=== PATIENT | male | born 1955 | race Caucasian/White ===

== ENCOUNTER → 2017-07-09 | Outpatient (CLI) | payer OTHER | END | disposition home or self-care (01) | LOC: RAD 07:37 | PROVIDERS: ATTEND Surgery | DX: Z01.818 Encounter for other preprocedural examination (principal); K57.10 Diverticulosis of small intestine without perforation or abscess without bleeding; M53.86 Other specified dorsopathies, lumbar region | CPT/HCPCS: 74241 ==

== ENCOUNTER 2018-09-02 11:39 | Day surgery (SDC) | payer OTHER ==
[2018-08-31 08:51] VITALS: BP 115/63
[2018-08-31 09:10] LABS: BASOPHILS # (AUTO) 0.02 x10^3/uL (0-0.1); BASOPHILS % (AUTO) 0 % (0-1); EOSINOPHILS % (AUTO) 4 % (1-7); LYMPHOCYTES # (AUTO) 1.61 x10^3/uL (1-3.4); LYMPHOCYTES % (AUTO) 32 % (22-44); MD NO; MEAN CORPUSCULAR HEMOGLOBIN 32.7 pg (27.5-34.5); MEAN CORPUSCULAR HGB CONC 34.2 g/dL (33.2-36.2); MEAN CORPUSCULAR VOLUME 95.5 fL (81-97); MEAN PLATELET VOLUME 7.9 fL (7.4-10.4); MONOCYTES # (AUTO) 0.48 x10^3/uL (0.2-0.8); MONOCYTES % (AUTO) 10 % (2-9); NEUTROPHILS # (AUTO) 2.77 x10^3/uL (1.8-6.8); NEUTROPHILS % (AUTO) 55 % (42-75); PLATELET COUNT 135 x10^3/uL (130-400); RED BLOOD COUNT 4.86 x10^6/uL (4.38-5.82); RED CELL DISTRIBUTION WIDTH 13.6 % (9.4-14.8)
[2018-08-31 09:16] LABS: ANION GAP 8 mmol/L (5-15); CALCIUM 9.2 mg/dL (8.5-10.1); CHLORIDE 101 mmol/L (98-107); CREATININE 0.95 mg/dL (0.7-1.3)
[~2018-09-02] VITALS: Ht 180.3 cm; Wt 136.4 kg
[~2018-09-02 11:39] MED LIST: ENAL1TAB5 PO; LORA0.5T PO; METF500T9 PO; SIMV20TA3 PO
[2018-09-02] MEDS ORDERED: UBID100C41 PO (12:14)
[2018-09-02] MEDS ORDERED: mega red PO (12:14)
[2018-09-02] MEDS ORDERED: CHOL500045 PO (12:14)
[2018-09-02] MEDS ORDERED: MULT-6 PO (12:14)
[2018-09-02] MEDS ORDERED: NITROGLYCERIN 5 MG/ML, 10ML ONE (14:25)
[2018-09-02] MEDS ORDERED: MIDAZOLAM 1 MG/ML, 5ML ONE (14:32)
[2018-09-02] MEDS ORDERED: TICAGRELOR 90 MG TABLET ONE (14:32)
[2018-09-02] MEDS ORDERED: BIVALIRUDIN 250 MG ONE (14:32)
[2018-09-02] MEDS ORDERED: HEPARIN 1,000 UNITS/ML, 10ML ONE (14:32)
[2018-09-02] MEDS ORDERED: VERAPAMIL 2.5 MG/ML, 2ML ONE (14:32)
[2018-09-02] MEDS ORDERED: FENTANYL PF 100 MCG/2ML ONE (14:32)
[2018-09-02] MEDS ORDERED: SODIUM CHLORIDE 0.9% 1,000 ML IV SCH (15:13)
== END 2018-09-02 17:06 | disposition home or self-care (01) ==
LOC: CACL 11:39
PROVIDERS: ATTEND Internal Medicine Cardiovascular Disease
DX: I25.10 Atherosclerotic heart disease of native coronary artery without angina pectoris (principal); E78.2 Mixed hyperlipidemia; I10 Essential (primary) hypertension; E11.9 Type 2 diabetes mellitus without complications; E66.9 Obesity, unspecified; Z88.5 Allergy status to narcotic agent; Z98.890 Other specified postprocedural states; Z88.8 Allergy status to other drugs, medicaments and biological substances; Z87.01 Personal history of pneumonia (recurrent); Z72.89 Other problems related to lifestyle; Z87.891 Personal history of nicotine dependence
CPT/HCPCS: 36415; 80048; 85025; 93456; 99156; C1769; C1894; J1644; J2250; J3010; Q9967; J0583

== ENCOUNTER 2018-09-30 04:09 | Inpatient (IN) | payer OTHER ==
[2018-09-29 13:11] LABS: INTERNATIONAL NORMALIZED RATIO 1.06 (0.93-1.1); PROTHROMBIN TIME 11.2 Seconds (9.6-11.5)
[2018-09-29 13:12] LABS: ALANINE AMINOTRANSFERASE 54 U/L (12-78); ALBUMIN 4.3 g/dL (3.4-5.0); ANION GAP 7 mmol/L (5-15); BASOPHILS # (AUTO) 0.03 x10^3/uL (0-0.1); BASOPHILS % (AUTO) 1 % (0-1); CALCIUM 9.6 mg/dL (8.5-10.1); CHLORIDE 101 mmol/L (98-107); CREATININE 0.94 mg/dL (0.7-1.3); EOSINOPHILS # (AUTO) 0.38 x10^3/uL (0-0.4); EOSINOPHILS % (AUTO) 7 % (1-7); LYMPHOCYTES # (AUTO) 1.47 x10^3/uL (1-3.4); LYMPHOCYTES % (AUTO) 27 % (22-44); MD NO; MEAN CORPUSCULAR HEMOGLOBIN 33.2 pg (27.5-34.5); MEAN CORPUSCULAR HGB CONC 34.8 g/dL (33.2-36.2); MEAN CORPUSCULAR VOLUME 95.5 fL (81-97); MEAN PLATELET VOLUME 7.8 fL (7.4-10.4); MONOCYTES # (AUTO) 0.62 x10^3/uL (0.2-0.8); MONOCYTES % (AUTO) 12 % (2-9); NEUTROPHILS # (AUTO) 2.87 x10^3/uL (1.8-6.8); NEUTROPHILS % (AUTO) 53 % (42-75); PLATELET COUNT 132 x10^3/uL (130-400); RED BLOOD COUNT 4.85 x10^6/uL (4.38-5.82); RED CELL DISTRIBUTION WIDTH 13.2 % (9.4-14.8)
[2018-09-29 13:14] LABS: ALKALINE PHOSPHATASE 45 U/L (45-117); BILIRUBIN,TOTAL 0.7 mg/dL (0.2-1.0); TOTAL PROTEIN 8.1 g/dL (6.4-8.2)
[2018-09-29 13:27] LABS: MICROSCOPIC NOT IND
[~2018-09-30] VITALS: Ht 180.3 cm; Wt 142.0 kg
[~2018-09-30 04:09] MED LIST changes: +BUPR100T11 PO; +CHOL500045 PO; +MULT-6 PO; +NALT50TA PO; +UBID100C41 PO; +mega red PO
[2018-09-30 04:28] VITALS: BP_SYST 112; BP_SYST 117; BP_DIAS 71; BP_DIAS 72
[2018-09-30] MEDS ORDERED: CHLORHEXIDINE 15 ML UDC MM SCH (04:30)
[2018-09-30] MEDS ORDERED: DO NOT GIVE MC SCH (04:30)
[2018-09-30] MEDS ORDERED: INSULIN LISPRO 100 UNITS/ML, PEN SQ-INSULIN SCH (04:30)
[2018-09-30] MEDS ORDERED: ALBUMIN HUMAN 5% 500 ML IV PRN (04:30)
[2018-09-30] MEDS ORDERED: VANCOMYCIN 2,100 MG in SODIUM CHLORIDE 0.9% 500 ML IV PRN (07:30)
[2018-09-30] MEDS ORDERED: MANNITOL PMX 20% 500 ML IVPB PRN (07:30)
[2018-09-30] MEDS ORDERED: POTASSIUM CHLORIDE 80 MEQ, SODIUM BICARBONATE 8.4% 10 MEQ, MAGNESIUM SULFATE 0.5 GM, LI... IV PRN (07:30)
[2018-09-30] MEDS ORDERED: DEXMEDETOMIDINE 200 MCG in SODIUM CHLORIDE 0.9% 48 ML IV SCH (07:30)
[2018-09-30] MEDS ORDERED: EPINEPHRINE 2 MG in SODIUM CHLORIDE 0.9% 248 ML IV SCH (07:30)
[2018-09-30] MEDS ORDERED: PHENYLEPHRINE 10 MG in SODIUM CHLORIDE 0.9% 249 ML IV PRN ×2 (07:30→12:19)
[2018-09-30] MEDS ORDERED: REGULAR INSULIN 62.5 UNITS in SODIUM CHLORIDE 0.9% 249.375 ML IV PRN (07:30)
[2018-09-30] MEDS ORDERED: CEFUROXIME 1.5 GM in SODIUM CHLORIDE 0.9% 50 ML IVPB PRN (07:30)
[2018-09-30] MEDS ORDERED: MIDAZOLAM 10MG/2 ML ONE (07:36)
[2018-09-30] MEDS ORDERED: FENTANYL PF 250 MCG/5ML ONE ×6 (07:36→12:40)
[2018-09-30] MEDS ORDERED: SODIUM CHLORIDE FLUSH 10ML SYR IVF SCH (09:00)
[2018-09-30] MEDS ORDERED: MUPIROCIN OINT 2%, 22GM TP SCH (09:00)
[2018-09-30] MEDS ORDERED: MAGNESIUM SULFATE PMX 4GM/100M 0 ML ONE (11:19)
[2018-09-30] MEDS ORDERED: LIDOCAINE 2% 100MG/5ML SYRINGE ONE ×2 (11:19→12:01)
[2018-09-30] MEDS ORDERED: AMIODARONE 50 MG/ML, 3ML ONE (11:43)
[2018-09-30] MEDS ORDERED: AMINOCAPROIC ACID 250 MG/ML, 20ML ONE ×2 (11:45)
[2018-09-30] MEDS ORDERED: PROPOFOL 10 MG/ML, 20ML ONE (11:45)
[2018-09-30] MEDS ORDERED: ROCURONIUM 10MG/ML,5ML ONE ×2 (11:45)
[2018-09-30] MEDS ORDERED: methylPREDNISolone SOD SUCC 125 MG/2 ML ONE (12:01)
[2018-09-30] MEDS ORDERED: SODIUM BICARBONATE 1 MEQ/ML, 50ML VIAL ONE (12:01)
[2018-09-30] MEDS ORDERED: HEPARIN 1,000 UNITS/ML, 30ML ONE (12:02)
[2018-09-30] MEDS ORDERED: ALBUMIN HUMAN 25% 50 ML ONE (12:02)
[2018-09-30] MEDS ORDERED: NITROGLYCERIN/D5W PMX 250 ML IV PRN (12:19)
[2018-09-30] MEDS ORDERED: SODIUM CHLORIDE 0.9% 1,000 ML IV PRN (12:19)
[2018-09-30] MEDS ORDERED: VASOPRESSIN 50 UNIT in SODIUM CHLORIDE 0.9% 247.5 ML IV PRN (12:19)
[2018-09-30] MEDS ORDERED: DOBUTAMINE 250 MG in SODIUM CHLORIDE 0.9% 230 ML IV PRN (12:19)
[2018-09-30] MEDS ORDERED: GLUCAGON 1 MG IM PRN (12:30)
[2018-09-30] MEDS ORDERED: CHLORHEXIDINE 15 ML UDC PO SCH (12:30)
[2018-09-30] MEDS ORDERED: INSULIN REGULAR 100 UNITS/ML, 3ML VIAL IVPush PRN (12:30)
[2018-09-30] MEDS ORDERED: DEXTROSE 4 GM TAB.CHEW PO PRN (12:30)
[2018-09-30] MEDS ORDERED: ACETAMINOPHEN 650 MG SUPP PR PRN (12:30)
[2018-09-30] MEDS ORDERED: PROCHLORPERAZINE 5 MG/ML, 2ML IVPush PRN (12:30)
[2018-09-30] MEDS ORDERED: MIDAZOLAM 1 MG/ML, 5ML IVPush PRN (12:30)
[2018-09-30] MEDS ORDERED: BISACODYL 10 MG SUPP PR PRN (12:30)
[2018-09-30] MEDS ORDERED: ONDANSETRON 2MG/ML, 2ML IVPush PRN (12:30)
[2018-09-30] MEDS ORDERED: BISACODYL 5 MG EC TABLET PO PRN (12:30)
[2018-09-30] MEDS ORDERED: DEXTROSE 50%, 50ML SYRINGE IVPush PRN (12:30)
[2018-09-30] MEDS ORDERED: ACETAMINOPHEN 325 MG TABLET PO PRN (12:30)
[2018-09-30] MEDS ORDERED: morphine SULFATE 10 MG/ML, 1ML IVPush PRN (12:30)
[2018-09-30] MEDS ORDERED: LACTATED RINGERS 1,000 ML IV PRN (12:30)
[2018-09-30] MEDS ORDERED: EPINEPHRINE 2 MG in SODIUM CHLORIDE 0.9% 248 ML IV PRN (13:00)
[2018-09-30] MEDS: DOCUSATE 100 MG CAPSULE PO SCH ×2 (13:08→20:52)
[2018-09-30 13:10] LABS: GLUCOSE BY BLOOD GAS ANALYZER 143 mg/dL (70-110); HEMOGLOBIN BY BLOOD GAS ANALYZ 13.1 g/dL (14.0-18.0); POTASSIUM BY BLOOD GAS ANALYZR 3.7 mmol/L (3.6-5.5)
[2018-09-30 13:20] LABS: INTERNATIONAL NORMALIZED RATIO 1.21 (0.93-1.1); PROTHROMBIN TIME 12.7 Seconds (9.6-11.5)
[2018-09-30] MEDS: MAGNESIUM SULFATE 1 GM in SODIUM CHLORIDE 0.9% 50 ML IVPB SCH (13:29)
[2018-09-30] MEDS: DEXMEDETOMIDINE 200 MCG in SODIUM CHLORIDE 0.9% 48 ML IV PRN ×3 (13:29→20:45)
[2018-09-30] MEDS: KSCALE TO 4.5 IV SCH ×2 (13:35→20:00)
[2018-09-30] MEDS: SODIUM BICARB 8.4%, 50ML SYRINGE IV PRN ×2 (13:37→15:10)
[2018-09-30] MEDS ORDERED: POTASSIUM CHLORIDE PMX 100 ML IV ONE (14:00)
[2018-09-30] MEDS: INSULIN LISPRO 100 UNITS/ML, PEN SQ-INSULIN SCH ×2 (15:49→20:52)
[2018-09-30] MEDS: REGULAR INSULIN 62.5 UNITS in SODIUM CHLORIDE 0.9% 249.375 ML IV PRN (16:44)
[2018-09-30] MEDS: FENTANYL PF 100 MCG/2ML IVPush PRN ×2 (16:55→20:18)
[2018-09-30] MEDS: SODIUM CHLORIDE FLUSH 10ML SYR IVF SCH (20:51)
[2018-09-30] MEDS: MUPIROCIN OINT 2%, 22GM NAS SCH (20:52)
[2018-09-30] MEDS ORDERED: VANCOMYCIN 2,100 MG in SODIUM CHLORIDE 0.9% 250 ML IVPB SCH (21:00)
[2018-09-30] MEDS: CEFUROXIME 1.5 GM in SODIUM CHLORIDE 0.9% 50 ML IVPB SCH (21:10)
[2018-09-30] MEDS: VANCOMYCIN 2,100 MG in SODIUM CHLORIDE 0.9% 500 ML IVPB SCH (21:48)
[2018-09-30] MEDS ORDERED: DEXMEDETOMIDINE 1,000 MCG in SODIUM CHLORIDE 0.9% 240 ML IV PRN (23:00)
[2018-10-01] MEDS: FENTANYL PF 100 MCG/2ML IVPush PRN ×3 (00:22→08:13)
[2018-10-01] MEDS: REGULAR INSULIN 62.5 UNITS in SODIUM CHLORIDE 0.9% 249.375 ML IV PRN (00:42)
[2018-10-01] MEDS: KSCALE TO 4.5 IV SCH ×2 (02:00→07:24)
[2018-10-01] MEDS: OXYcodone IR 5MG TABLET PO PRN ×6 (02:01→19:46)
[2018-10-01 06:24] LABS: MEAN CORPUSCULAR HEMOGLOBIN 33.5 pg (27.5-34.5); MEAN CORPUSCULAR HGB CONC 34.9 g/dL (33.2-36.2); MEAN CORPUSCULAR VOLUME 96.2 fL (81-97); RED BLOOD COUNT 3.76 x10^6/uL (4.38-5.82); RED CELL DISTRIBUTION WIDTH 13.5 % (9.4-14.8)
[2018-10-01 06:30] LABS: ANION GAP 7 mmol/L (5-15); CALCIUM 7.2 mg/dL (8.5-10.1); CHLORIDE 108 mmol/L (98-107); CREATININE 0.75 mg/dL (0.7-1.3)
[2018-10-01 06:31] LABS: INTERNATIONAL NORMALIZED RATIO 1.1 (0.93-1.1); PROTHROMBIN TIME 11.6 Seconds (9.6-11.5)
[2018-10-01 06:39] LABS: BASOPHILS # (AUTO) 0.02 x10^3/uL (0-0.1); BASOPHILS % (AUTO) 0 % (0-1); EOSINOPHILS % (AUTO) 0 % (1-7); LYMPHOCYTES # (AUTO) 0.73 x10^3/uL (1-3.4); LYMPHOCYTES % (AUTO) 9 % (22-44); MD SCAN; MEAN PLATELET VOLUME 7.5 fL (7.4-10.4); MONOCYTES # (AUTO) 0.83 x10^3/uL (0.2-0.8); MONOCYTES % (AUTO) 10 % (2-9); NEUTROPHILS # (AUTO) 6.97 x10^3/uL (1.8-6.8); NEUTROPHILS % (AUTO) 82 % (42-75); PLATELET COUNT 76 x10^3/uL (130-400)
[2018-10-01] MEDS: INSULIN LISPRO 100 UNITS/ML, PEN SQ-INSULIN SCH ×5 (07:00→20:54)
[2018-10-01] MEDS: CEFUROXIME 1.5 GM in SODIUM CHLORIDE 0.9% 50 ML IVPB SCH (08:13)
[2018-10-01] MEDS: MUPIROCIN OINT 2%, 22GM NAS SCH ×2 (08:14→20:50)
[2018-10-01] MEDS: SODIUM CHLORIDE FLUSH 10ML SYR IVF SCH ×2 (08:14→20:49)
[2018-10-01] MEDS: VANCOMYCIN 2,100 MG in SODIUM CHLORIDE 0.9% 500 ML IVPB SCH (08:14)
[2018-10-01] MEDS: ASPIRIN 81 MG TABLET EC PO SCH (08:16)
[2018-10-01] MEDS: DOCUSATE 100 MG CAPSULE PO SCH ×2 (08:16→20:50)
[2018-10-01] MEDS: WARFARIN BIOPROSTHETIC VALVE PROTOCOL 2-3 XX SCH (09:00)
[2018-10-01] MEDS ORDERED: KETOROLAC 30 MG/1 ML IM PRN (10:30)
[2018-10-01] MEDS: KETOROLAC 30 MG/1 ML IV PRN ×3 (10:52→22:38)
[2018-10-01] MEDS: MAGNESIUM SULFATE 1 GM in SODIUM CHLORIDE 0.9% 50 ML IVPB SCH (13:26)
[2018-10-01] MEDS ORDERED: WARFARIN 5 MG TABLET PO-COUM SCH (18:00)
[2018-10-02] MEDS: OXYcodone IR 5MG TABLET PO PRN ×4 (00:44→13:48)
[2018-10-02] MEDS: INSULIN LISPRO 100 UNITS/ML, PEN SQ-INSULIN SCH ×6 (00:49→21:00)
[2018-10-02] MEDS: KETOROLAC 30 MG/1 ML IV PRN ×2 (04:27→16:50)
[2018-10-02 04:47] LABS: MEAN CORPUSCULAR HEMOGLOBIN 33.1 pg (27.5-34.5); MEAN CORPUSCULAR HGB CONC 34.3 g/dL (33.2-36.2); MEAN CORPUSCULAR VOLUME 96.5 fL (81-97); MEAN PLATELET VOLUME 7.7 fL (7.4-10.4); PLATELET COUNT 76 x10^3/uL (130-400); RED BLOOD COUNT 3.58 x10^6/uL (4.38-5.82); RED CELL DISTRIBUTION WIDTH 13.4 % (9.4-14.8)
[2018-10-02 04:50] LABS: INTERNATIONAL NORMALIZED RATIO 1.11 (0.93-1.1); PROTHROMBIN TIME 11.7 Seconds (9.6-11.5)
[2018-10-02 04:53] LABS: ANION GAP 7 mmol/L (5-15); CALCIUM 7.4 mg/dL (8.5-10.1); CHLORIDE 102 mmol/L (98-107); CREATININE 0.75 mg/dL (0.7-1.3)
[2018-10-02 04:58] LABS: BASOPHILS # (AUTO) 0.03 x10^3/uL (0-0.1); BASOPHILS % (AUTO) 0 % (0-1); EOSINOPHILS # (AUTO) 0.03 x10^3/uL (0-0.4); EOSINOPHILS % (AUTO) 0 % (1-7); LYMPHOCYTES % (AUTO) 12 % (22-44); MD SCAN; MONOCYTES # (AUTO) 0.75 x10^3/uL (0.2-0.8); MONOCYTES % (AUTO) 8 % (2-9); NEUTROPHILS # (AUTO) 7.62 x10^3/uL (1.8-6.8); NEUTROPHILS % (AUTO) 80 % (42-75)
[2018-10-02] MEDS ORDERED: MAGNESIUM HYDROXIDE 8%, 30ML UDC PO PRN (08:00)
[2018-10-02] MEDS: BUPROPION 100 MG TABLET PO SCH ×2 (09:00→21:00)
[2018-10-02] MEDS: WARFARIN BIOPROSTHETIC VALVE PROTOCOL 2-3 XX SCH (09:00)
[2018-10-02] MEDS: metFORMIN XR 500 MG TAB.ER.24H PO SCH (09:18)
[2018-10-02] MEDS: MUPIROCIN OINT 2%, 22GM NAS SCH ×2 (09:19→21:30)
[2018-10-02] MEDS: DOCUSATE 100 MG CAPSULE PO SCH ×2 (09:26→21:00)
[2018-10-02] MEDS: ASPIRIN 81 MG TABLET EC PO SCH (09:26)
[2018-10-02] MEDS: FUROSEMIDE 20 MG/2 ML IV SCH ×2 (09:26→16:50)
[2018-10-02] MEDS: SODIUM CHLORIDE FLUSH 10ML SYR IVF SCH ×3 (09:27→21:32)
[2018-10-02] MEDS: MAGNESIUM SULFATE 1 GM in SODIUM CHLORIDE 0.9% 50 ML IVPB SCH (12:50)
[2018-10-02 14:00] VITALS: BP 149/83
[2018-10-02] MEDS ORDERED: WARFARIN 5 MG TABLET PO-COUM SCH (18:00)
[2018-10-02 19:12] VITALS: BP 135/64
[2018-10-02] MEDS ORDERED: LORazepam 0.5MG TABLET PO PRN (23:00)
[2018-10-03 00:36] VITALS: BP 130/78
[2018-10-03] MEDS ORDERED: AMIODARONE 150 MG in DEXTROSE 5% 100 ML IVPB ONE (00:40)
[2018-10-03] MEDS ORDERED: AMIODARONE 900 MG in DEXTROSE 5% 482 ML IV PRN (00:40)
[2018-10-03] MEDS ORDERED: FILTER 0.22 MICRON IV PRN (01:00)
[2018-10-03] MEDS: INSULIN LISPRO 100 UNITS/ML, PEN SQ-INSULIN SCH ×5 (02:37→21:00)
[2018-10-03] MEDS: OXYcodone IR 5MG TABLET PO PRN ×4 (03:18→19:14)
[2018-10-03 04:50] LABS: MEAN CORPUSCULAR HEMOGLOBIN 33.5 pg (27.5-34.5); MEAN CORPUSCULAR HGB CONC 34.7 g/dL (33.2-36.2); MEAN CORPUSCULAR VOLUME 96.4 fL (81-97); MEAN PLATELET VOLUME 7.8 fL (7.4-10.4); PLATELET COUNT 93 x10^3/uL (130-400); RED CELL DISTRIBUTION WIDTH 13.7 % (9.4-14.8)
[2018-10-03 04:51] LABS: ANION GAP 7 mmol/L (5-15); CALCIUM 7.1 mg/dL (8.5-10.1); CHLORIDE 105 mmol/L (98-107); CREATININE 0.53 mg/dL (0.7-1.3)
[2018-10-03 05:29] LABS: BASOPHILS # (AUTO) 0.02 x10^3/uL (0-0.1); BASOPHILS % (AUTO) 0 % (0-1); EOSINOPHILS # (AUTO) 0.15 x10^3/uL (0-0.4); EOSINOPHILS % (AUTO) 2 % (1-7); LYMPHOCYTES # (AUTO) 1.08 x10^3/uL (1-3.4); LYMPHOCYTES % (AUTO) 14 % (22-44); MD SCAN; MONOCYTES # (AUTO) 0.69 x10^3/uL (0.2-0.8); MONOCYTES % (AUTO) 9 % (2-9); NEUTROPHILS # (AUTO) 5.95 x10^3/uL (1.8-6.8); NEUTROPHILS % (AUTO) 75 % (42-75)
[2018-10-03 07:25] VITALS: BP 127/78
[2018-10-03] MEDS: BUPROPION 100 MG TABLET PO SCH ×2 (09:00→09:24)
[2018-10-03] MEDS: WARFARIN BIOPROSTHETIC VALVE PROTOCOL 2-3 XX SCH (09:00)
[2018-10-03] MEDS: DOCUSATE 100 MG CAPSULE PO SCH ×2 (09:15→21:00)
[2018-10-03] MEDS: metFORMIN XR 500 MG TAB.ER.24H PO SCH (09:24)
[2018-10-03] MEDS: ASPIRIN 81 MG TABLET EC PO SCH (09:24)
[2018-10-03] MEDS: MUPIROCIN OINT 2%, 22GM NAS SCH ×2 (09:25→22:04)
[2018-10-03] MEDS: SODIUM CHLORIDE FLUSH 10ML SYR IVF SCH ×4 (09:25→22:05)
[2018-10-03] MEDS: FUROSEMIDE 20 MG/2 ML IV SCH ×2 (09:25→18:24)
[2018-10-03 12:59] VITALS: BP 144/74
[2018-10-03 13:00] LABS: INTERNATIONAL NORMALIZED RATIO 1.15 (0.93-1.1); PROTHROMBIN TIME 12.1 Seconds (9.6-11.5)
[2018-10-03] MEDS ORDERED: WARFARIN 7.5 MG TABLET PO-COUM SCH (18:00)
[2018-10-03 19:22] VITALS: BP 125/77
[2018-10-03] MEDS: SIMVASTATIN 20 MG TABLET PO SCH (22:04)
[2018-10-04] MEDS: OXYcodone IR 5MG TABLET PO PRN ×4 (00:17→18:43)
[2018-10-04 02:11] VITALS: BP 145/78
[2018-10-04 06:05] LABS: INTERNATIONAL NORMALIZED RATIO 1.17 (0.93-1.1); PROTHROMBIN TIME 12.3 Seconds (9.6-11.5)
[2018-10-04 06:07] LABS: BASOPHILS # (AUTO) 0.01 x10^3/uL (0-0.1); BASOPHILS % (AUTO) 0 % (0-1); EOSINOPHILS # (AUTO) 0.26 x10^3/uL (0-0.4); EOSINOPHILS % (AUTO) 5 % (1-7); LYMPHOCYTES # (AUTO) 1.25 x10^3/uL (1-3.4); LYMPHOCYTES % (AUTO) 25 % (22-44); MD NO; MEAN CORPUSCULAR HEMOGLOBIN 33.3 pg (27.5-34.5); MEAN CORPUSCULAR HGB CONC 34.5 g/dL (33.2-36.2); MEAN CORPUSCULAR VOLUME 96.6 fL (81-97); MEAN PLATELET VOLUME 7.4 fL (7.4-10.4); MONOCYTES # (AUTO) 0.39 x10^3/uL (0.2-0.8); MONOCYTES % (AUTO) 8 % (2-9); NEUTROPHILS # (AUTO) 3.13 x10^3/uL (1.8-6.8); NEUTROPHILS % (AUTO) 62 % (42-75); PLATELET COUNT 146 x10^3/uL (130-400); RED BLOOD COUNT 3.52 x10^6/uL (4.38-5.82); RED CELL DISTRIBUTION WIDTH 13.1 % (9.4-14.8)
[2018-10-04 06:09] LABS: ANION GAP 8 mmol/L (5-15); CALCIUM 7.9 mg/dL (8.5-10.1); CHLORIDE 104 mmol/L (98-107); CREATININE 0.61 mg/dL (0.7-1.3)
[2018-10-04 06:35] VITALS: BP 147/67
[2018-10-04] MEDS: INSULIN LISPRO 100 UNITS/ML, PEN SQ-INSULIN SCH ×4 (07:00→20:04)
[2018-10-04] MEDS: DOCUSATE 100 MG CAPSULE PO SCH ×2 (08:45→19:59)
[2018-10-04] MEDS ORDERED: ENALAPRIL 5MG TABLET ONE (08:50)
[2018-10-04] MEDS: FUROSEMIDE 20 MG/2 ML IV SCH ×2 (08:52→17:28)
[2018-10-04] MEDS: SODIUM CHLORIDE FLUSH 10ML SYR IVF SCH ×4 (08:53→20:08)
[2018-10-04] MEDS: metFORMIN XR 500 MG TAB.ER.24H PO SCH (08:53)
[2018-10-04] MEDS: MUPIROCIN OINT 2%, 22GM NAS SCH ×2 (08:54→19:59)
[2018-10-04] MEDS: HYDROCHLOROTHIAZIDE 25 MG TABLET PO SCH (08:54)
[2018-10-04] MEDS: ASPIRIN 81 MG TABLET EC PO SCH (08:54)
[2018-10-04] MEDS: ENALAPRIL 10 MG TABLET PO SCH (08:55)
[2018-10-04] MEDS: WARFARIN BIOPROSTHETIC VALVE PROTOCOL 2-3 XX SCH (09:00)
[2018-10-04 12:25] VITALS: BP 126/72
[2018-10-04] MEDS ORDERED: WARFARIN 10 MG TABLET PO-COUM SCH (18:00)
[2018-10-04] MEDS: SIMVASTATIN 20 MG TABLET PO SCH (20:00)
[2018-10-04 20:22] VITALS: BP 117/73
[2018-10-05 01:27] VITALS: BP 141/83
[2018-10-05] MEDS: OXYcodone IR 5MG TABLET PO PRN ×4 (01:35→17:29)
[2018-10-05 05:41] LABS: INTERNATIONAL NORMALIZED RATIO 1.41 (0.93-1.1); PROTHROMBIN TIME 14.8 Seconds (9.6-11.5)
[2018-10-05 05:44] LABS: BASOPHILS # (AUTO) 0.02 x10^3/uL (0-0.1); BASOPHILS % (AUTO) 0 % (0-1); CHLORIDE 101 mmol/L (98-107); EOSINOPHILS # (AUTO) 0.35 x10^3/uL (0-0.4); EOSINOPHILS % (AUTO) 6 % (1-7); LYMPHOCYTES # (AUTO) 1.42 x10^3/uL (1-3.4); LYMPHOCYTES % (AUTO) 24 % (22-44); MD NO; MEAN CORPUSCULAR HGB CONC 34.3 g/dL (33.2-36.2); MEAN PLATELET VOLUME 7.5 fL (7.4-10.4); MONOCYTES # (AUTO) 0.44 x10^3/uL (0.2-0.8); MONOCYTES % (AUTO) 8 % (2-9); NEUTROPHILS # (AUTO) 3.62 x10^3/uL (1.8-6.8); NEUTROPHILS % (AUTO) 62 % (42-75); PLATELET COUNT 182 x10^3/uL (130-400)
[2018-10-05 05:50] LABS: ANION GAP 7 mmol/L (5-15); CALCIUM 8.7 mg/dL (8.5-10.1); CREATININE 0.74 mg/dL (0.7-1.3)
[2018-10-05 07:01] VITALS: BP 135/78
[2018-10-05] MEDS ORDERED: DOCU-131 PO (07:04)
[2018-10-05] MEDS ORDERED: ASPI81TA45 PO (07:04)
[2018-10-05] MEDS ORDERED: WARF10TA PO (07:04)
[2018-10-05] MEDS: INSULIN LISPRO 100 UNITS/ML, PEN SQ-INSULIN SCH ×3 (07:13→16:00)
[2018-10-05] MEDS ORDERED: POTASSIUM CHLORIDE 20 MEQ TAB.ER.PRT PO ONE (07:30)
[2018-10-05] MEDS ORDERED: ENALAPRIL 5MG TABLET ONE (08:29)
[2018-10-05] MEDS: FUROSEMIDE 20 MG/2 ML IV SCH ×2 (08:31→17:00)
[2018-10-05] MEDS: metFORMIN XR 500 MG TAB.ER.24H PO SCH (08:32)
[2018-10-05] MEDS: ASPIRIN 81 MG TABLET EC PO SCH (08:32)
[2018-10-05] MEDS: ENALAPRIL 10 MG TABLET PO SCH (08:32)
[2018-10-05] MEDS: HYDROCHLOROTHIAZIDE 25 MG TABLET PO SCH (08:32)
[2018-10-05] MEDS: DOCUSATE 100 MG CAPSULE PO SCH (08:32)
[2018-10-05] MEDS: WARFARIN BIOPROSTHETIC VALVE PROTOCOL 2-3 XX SCH (08:33)
[2018-10-05] MEDS: SODIUM CHLORIDE FLUSH 10ML SYR IVF SCH ×2 (08:33)
[2018-10-05] MEDS: MUPIROCIN OINT 2%, 22GM NAS SCH (08:40)
[2018-10-05] MEDS ORDERED: OXYC5TAB3 PO (10:09)
[2018-10-05 12:28] VITALS: BP 109/69
[2018-10-05] MEDS ORDERED: WARFARIN 7.5 MG TABLET PO-COUM ONE (18:00)
== END 2018-10-05 18:00 | disposition home health service (06) | DRG 219 ==
LOC: 5SO 04:09 → CSU 10:39 → 5SO 10-02 13:36
PROVIDERS: ADMIT Thoracic Surgery (Cardiothoracic Vascular Surgery); ATTEND Thoracic Surgery (Cardiothoracic Vascular Surgery)
PROC: B24BZZ4 Ultrasonography of Heart with Aorta, Transesophageal (ICD-10-PCS; 2018-09-30)
PROC: 5A1221Z Performance of Cardiac Output, Continuous (ICD-10-PCS; 2018-09-30)
PROC: 02RF08Z Replacement of Aortic Valve with Zooplastic Tissue, Open Approach (ICD-10-PCS; principal; 2018-09-30 08:30)
DX: I08.0 Rheumatic disorders of both mitral and aortic valves (principal); I50.33 Acute on chronic diastolic (congestive) heart failure; E11.9 Type 2 diabetes mellitus without complications; E78.5 Hyperlipidemia, unspecified; I71.2 Thoracic aortic aneurysm, without rupture; I25.10 Atherosclerotic heart disease of native coronary artery without angina pectoris; I11.0 Hypertensive heart disease with heart failure; I70.0 Atherosclerosis of aorta; I44.7 Left bundle-branch block, unspecified; I48.91 Unspecified atrial fibrillation; Z86.79 Personal history of other diseases of the circulatory system; Z87.891 Personal history of nicotine dependence; Z88.5 Allergy status to narcotic agent; Z79.4 Long term (current) use of insulin
CPT/HCPCS: 36415; 36600; S0017; 71045; 71046; 80048; 80053; 81003; 82040; 82330; 82800; 82803; 82810; 82947; 82962; 83036; 83735; 84132; 84295; 85014; 85018; 85025; 85049; 85347; 85610; 85730; 86850; 86900; 86923; 87081; 88304; 88305; 88311; 93005; 93312; 93321; 93325; 93880; 94002; 94003; 94150; C1768; G0378; J0697; J1644; J1815; J1885; J2250; J2704; J3010; J3370; J3475; J3480; J3490; P9045; P9047; C1751; C1760; C1762; J0171; J0282; J1940; J2370; J2930; J7040; J7050; J7060; J7120

== ENCOUNTER 2018-10-11 06:29 | Emergency (ER) | payer OTHER ==
[~2018-10-11] VITALS: Ht 180.3 cm; Wt 133.0 kg
[~2018-10-11 06:29] MED LIST changes: +ASPI81TA45 PO; +DOCU-131 PO; +OXYC5TAB3 PO; +WARF10TA PO
[2018-10-11 06:59] LABS: BASOPHILS # (AUTO) 0.01 x10^3/uL (0-0.1); BASOPHILS % (AUTO) 0 % (0-1); EOSINOPHILS # (AUTO) 0.26 x10^3/uL (0-0.4); EOSINOPHILS % (AUTO) 5 % (1-7); LYMPHOCYTES # (AUTO) 1.16 x10^3/uL (1-3.4); LYMPHOCYTES % (AUTO) 21 % (22-44); MD NO; MEAN CORPUSCULAR HEMOGLOBIN 32.7 pg (27.5-34.5); MEAN CORPUSCULAR HGB CONC 34.1 g/dL (33.2-36.2); MEAN PLATELET VOLUME 7.3 fL (7.4-10.4); MONOCYTES % (AUTO) 7 % (2-9); NEUTROPHILS # (AUTO) 3.75 x10^3/uL (1.8-6.8); NEUTROPHILS % (AUTO) 67 % (42-75); PLATELET COUNT 281 x10^3/uL (130-400); RED BLOOD COUNT 3.89 x10^6/uL (4.38-5.82); RED CELL DISTRIBUTION WIDTH 13.2 % (9.4-14.8)
[2018-10-11] MEDS ORDERED: SODIUM CHLORIDE FLUSH 10ML SYR IVF ONE (07:00)
[2018-10-11 07:07] LABS: INTERNATIONAL NORMALIZED RATIO 1.83 (0.93-1.1)
[2018-10-11 07:10] LABS: ALANINE AMINOTRANSFERASE 40 U/L (12-78); ALBUMIN 3.4 g/dL (3.4-5.0); ANION GAP 6 mmol/L (5-15); CALCIUM 8.9 mg/dL (8.5-10.1); CHLORIDE 96 mmol/L (98-107)
[2018-10-11 07:14] LABS: ALKALINE PHOSPHATASE 53 U/L (45-117); BILIRUBIN,TOTAL 0.8 mg/dL (0.2-1.0); CREATININE 0.86 mg/dL (0.7-1.3); TOTAL PROTEIN 7.3 g/dL (6.4-8.2)
[2018-10-11 07:55] VITALS: BP 127/67
== END 2018-10-11 08:16 | disposition home or self-care (01) ==
LOC: ED 08:15
DX: R07.89 Other chest pain (principal); Z95.2 Presence of prosthetic heart valve; I10 Essential (primary) hypertension; E11.9 Type 2 diabetes mellitus without complications; Z87.891 Personal history of nicotine dependence
CPT/HCPCS: 36415; 71045; 80053; 83880; 85025; 85610; 93005; 99284

== ENCOUNTER → 2018-11-18 | Outpatient (CLI) | payer OTHER | END | disposition home or self-care (01) | LOC: CVU 07:29 | PROVIDERS: ATTEND Internal Medicine Cardiovascular Disease | DX: I35.0 Nonrheumatic aortic (valve) stenosis (principal); E78.5 Hyperlipidemia, unspecified; I10 Essential (primary) hypertension; E11.9 Type 2 diabetes mellitus without complications; Z87.891 Personal history of nicotine dependence; Z99.81 Dependence on supplemental oxygen | CPT/HCPCS: 0399T; 93306 ==

== ENCOUNTER → 2018-12-08 | Outpatient (CLI) | payer OTHER ==
[2018-12-08 14:40] LABS: PROTHROMBIN TIME 49.9 Seconds (9.6-11.5)
[2018-12-08 15:15] LABS: INTERNATIONAL NORMALIZED RATIO 5.01 (0.93-1.1)
== END | disposition home or self-care (01) ==
LOC: LAB 14:12
PROVIDERS: ATTEND Internal Medicine Cardiovascular Disease
DX: I35.0 Nonrheumatic aortic (valve) stenosis (principal); Z79.01 Long term (current) use of anticoagulants
CPT/HCPCS: 36415; 85610

== ENCOUNTER → 2018-12-14 | Outpatient (CLI) | payer OTHER ==
[~2018-12-14] MED LIST changes: +REGADENOSON 0.4 MG/5 ML SYRINGE ONE
== END | disposition home or self-care (01) ==
LOC: CFH 07:44
PROVIDERS: ATTEND Internal Medicine Cardiovascular Disease
DX: I25.10 Atherosclerotic heart disease of native coronary artery without angina pectoris (principal); I35.0 Nonrheumatic aortic (valve) stenosis
CPT/HCPCS: 78452; 93017; A9502; J2785

== ENCOUNTER 2018-12-15 08:13 | Outpatient (CLI) | payer OTHER ==
[~2018-12-15 08:13] MED LIST changes: -REGADENOSON 0.4 MG/5 ML SYRINGE ONE
[2018-12-15 08:38] LABS: INTERNATIONAL NORMALIZED RATIO 3.34 (0.93-1.1); PROTHROMBIN TIME 33.5 Seconds (9.6-11.5)
== END 2018-12-15 23:59 | disposition home or self-care (01) ==
LOC: LAB 08:13
PROVIDERS: ATTEND Internal Medicine Cardiovascular Disease
DX: Z79.01 Long term (current) use of anticoagulants (principal); I35.0 Nonrheumatic aortic (valve) stenosis
CPT/HCPCS: 36415; 85610

== ENCOUNTER → 2019-01-07 | Outpatient (CLI) | payer OTHER ==
[2019-01-07 08:37] LABS: MEAN CORPUSCULAR HEMOGLOBIN 30.2 pg (27.5-34.5); MEAN CORPUSCULAR HGB CONC 33.1 g/dL (33.2-36.2); MEAN CORPUSCULAR VOLUME 91.1 fL (81-97); MEAN PLATELET VOLUME 7.8 fL (7.4-10.4); PLATELET COUNT 173 x10^3/uL (130-400); RED BLOOD COUNT 5.05 x10^6/uL (4.38-5.82)
[2019-01-07 08:48] LABS: ALANINE AMINOTRANSFERASE 24 U/L (12-78); ALBUMIN 3.9 g/dL (3.4-5.0); ANION GAP 3 mmol/L (5-15); CALCIUM 8.9 mg/dL (8.5-10.1); CHLORIDE 102 mmol/L (98-107); CHOLESTEROL, TOTAL 141 mg/dL (140-239); CREATININE 0.88 mg/dL (0.7-1.3)
[2019-01-07 08:50] LABS: ALKALINE PHOSPHATASE 51 U/L (45-117); BILIRUBIN,TOTAL 0.5 mg/dL (0.2-1.0); CHOL/HDL RATIO 3.5; HDL CHOL % 28 % (26-37); HDL CHOLESTEROL (DIRECT) 40 mg/dL (40-60); LDL CHOLESTEROL,CALCULATED 53 mg/dL (54-169); LDL/HDL RATIO 1.3 (0.5-3.0); TOTAL PROTEIN 7.9 g/dL (6.4-8.2); TRIGLYCERIDES 238 mg/dL (50-200); VLDL CHOLESTEROL 48 mg/dL (0-25)
== END | disposition home or self-care (01) ==
LOC: LAB 08:15
PROVIDERS: ATTEND Internal Medicine
DX: Z12.5 Encounter for screening for malignant neoplasm of prostate (principal); I10 Essential (primary) hypertension; E11.69 Type 2 diabetes mellitus with other specified complication; E78.2 Mixed hyperlipidemia; E55.9 Vitamin D deficiency, unspecified; E11.65 Type 2 diabetes mellitus with hyperglycemia; F17.201 Nicotine dependence, unspecified, in remission
CPT/HCPCS: 36415; 80053; 80061; 82043; 82306; 82570; 83036; 84153; 85027

== ENCOUNTER → 2019-11-01 | Outpatient (CLI) | payer OTHER ==
[~2019-11-01] MED LIST changes: +METF500T12 PO; -METF500T9 PO
== END | disposition home or self-care (01) ==
LOC: CFH 08:18
PROVIDERS: ATTEND Nurse Practitioner
DX: R91.1 Solitary pulmonary nodule (principal)
CPT/HCPCS: 71250

== ENCOUNTER → 2019-11-22 | Outpatient (CLI) | payer OTHER ==
[~2019-11-22] MED LIST changes: +SIMV20TA19 PO; -SIMV20TA3 PO
== END | disposition home or self-care (01) ==
LOC: CVU 09:55
PROVIDERS: ATTEND Internal Medicine Cardiovascular Disease
DX: I08.8 Other rheumatic multiple valve diseases (principal); I11.9 Hypertensive heart disease without heart failure; E11.9 Type 2 diabetes mellitus without complications; Z87.891 Personal history of nicotine dependence; Z95.4 Presence of other heart-valve replacement
CPT/HCPCS: 93306

== ENCOUNTER → 2020-07-06 | Outpatient (CLI) | payer OTHER ==
[~2020-07-06] MED LIST changes: +METF-754 PO; -METF500T12 PO
[2020-07-06 07:29] LABS: BASOPHILS # (AUTO) 0.01 x10^3/uL (0-0.1); BASOPHILS % (AUTO) 0 % (0-1); EOSINOPHILS # (AUTO) 0.23 x10^3/uL (0-0.4); EOSINOPHILS % (AUTO) 4 % (1-7); LYMPHOCYTES # (AUTO) 1.41 x10^3/uL (1-3.4); LYMPHOCYTES % (AUTO) 26 % (22-44); MD NO; MEAN CORPUSCULAR HEMOGLOBIN 32.2 pg (27.5-34.5); MEAN CORPUSCULAR HGB CONC 33.1 g/dL (33.2-36.2); MEAN CORPUSCULAR VOLUME 97.3 fL (81-97); MEAN PLATELET VOLUME 7.6 fL (7.4-10.4); MONOCYTES # (AUTO) 0.55 x10^3/uL (0.2-0.8); MONOCYTES % (AUTO) 10 % (2-9); NEUTROPHILS # (AUTO) 3.26 x10^3/uL (1.8-6.8); NEUTROPHILS % (AUTO) 60 % (42-75); PLATELET COUNT 167 x10^3/uL (130-400); RED BLOOD COUNT 4.84 x10^6/uL (4.38-5.82); RED CELL DISTRIBUTION WIDTH 13.6 % (9.4-14.8)
[2020-07-06 07:34] LABS: ALANINE AMINOTRANSFERASE 51 U/L (12-78); ALBUMIN 4.1 g/dL (3.4-5.0); ANION GAP 6 mmol/L (5-15); CALCIUM 9.8 mg/dL (8.5-10.1); CHLORIDE 103 mmol/L (98-107); CHOLESTEROL, TOTAL 140 mg/dL (140-239)
[2020-07-06 07:37] LABS: ALKALINE PHOSPHATASE 42 U/L (45-117); BILIRUBIN,TOTAL 0.7 mg/dL (0.2-1.0); CHOL/HDL RATIO 3.5; HDL CHOL % 29 % (26-37); HDL CHOLESTEROL (DIRECT) 40 mg/dL (40-60); LDL CHOLESTEROL,CALCULATED 55 mg/dL (54-169); LDL/HDL RATIO 1.4 (0.5-3.0); TRIGLYCERIDES 225 mg/dL (50-200); VLDL CHOLESTEROL 45 mg/dL (0-25)
[2020-07-06 07:38] LABS: MICROSCOPIC NOT IND
== END | disposition home or self-care (01) ==
LOC: LAB 06:53
PROVIDERS: ATTEND Internal Medicine
DX: I11.9 Hypertensive heart disease without heart failure (principal); E11.65 Type 2 diabetes mellitus with hyperglycemia; E55.9 Vitamin D deficiency, unspecified; E78.2 Mixed hyperlipidemia; F17.201 Nicotine dependence, unspecified, in remission; E11.69 Type 2 diabetes mellitus with other specified complication; G47.33 Obstructive sleep apnea (adult) (pediatric); I42.9 Cardiomyopathy, unspecified; R74.0 Nonspecific elevation of levels of transaminase and lactic acid dehydrogenase [LDH]
CPT/HCPCS: 36415; 80053; 80061; 81003; 82043; 82306; 82570; 83036; 84153; 85025

== ENCOUNTER 2020-07-12 05:41 | Emergency (ER) | payer OTHER ==
[~2020-07-12] VITALS: Ht 180.3 cm; Wt 142.0 kg
--- NOTE | 2020-07-12 05:55 | NUR ---
PT CAME INTO ED FOR BLOOD IN STOOL THIS AM. DENIES DIZZINESS, STATES JUST FLANK PAIN AND ABDOMINAL PAIN ON THE RIGHT SIDE RATED 6/10. DENIES ANY DIFFICULTY URINATING. PT RESTING ON GURNEY, NAD, APPEARS SLIGHTLY UNCOMFORTABLE. REPORTS PAIN STARTED GETTING BAD THIS MORING, MANIFESTING AROUND 0400. DENIES N/V. AT BS PT PLACED ON SPO2/BP MONITORING CALLUM HANKINS AT BS FOR EVAL AND POC
[2020-07-12] MEDS ORDERED: ENALAPRIL PO (06:07)
[2020-07-12] MEDS ORDERED: SODIUM CHLORIDE FLUSH 10ML SYR IVF ONE (06:30)
[2020-07-12 06:41] LABS: BASOPHILS # (AUTO) 0.01 x10^3/uL (0-0.1); BASOPHILS % (AUTO) 0 % (0-1); EOSINOPHILS # (AUTO) 0.22 x10^3/uL (0-0.4); EOSINOPHILS % (AUTO) 3 % (1-7); LYMPHOCYTES # (AUTO) 1.23 x10^3/uL (1-3.4); LYMPHOCYTES % (AUTO) 19 % (22-44); MD NO; MEAN CORPUSCULAR HEMOGLOBIN 32.4 pg (27.5-34.5); MEAN CORPUSCULAR HGB CONC 33.5 g/dL (33.2-36.2); MEAN PLATELET VOLUME 7.9 fL (7.4-10.4); MONOCYTES # (AUTO) 0.49 x10^3/uL (0.2-0.8); MONOCYTES % (AUTO) 8 % (2-9); NEUTROPHILS # (AUTO) 4.53 x10^3/uL (1.8-6.8); NEUTROPHILS % (AUTO) 70 % (42-75); PLATELET COUNT 142 x10^3/uL (130-400); RED BLOOD COUNT 4.71 x10^6/uL (4.38-5.82); RED CELL DISTRIBUTION WIDTH 13.4 % (9.4-14.8)
[2020-07-12 06:45] LABS: MICROSCOPIC NOT IND
[2020-07-12 06:52] LABS: ALBUMIN 3.9 g/dL (3.4-5.0); ANION GAP 7 mmol/L (5-15); CALCIUM 9.9 mg/dL (8.5-10.1); CHLORIDE 103 mmol/L (98-107)
[2020-07-12 06:55] LABS: ALANINE AMINOTRANSFERASE 42 U/L (12-78); ALKALINE PHOSPHATASE 44 U/L (45-117); BILIRUBIN,TOTAL 0.7 mg/dL (0.2-1.0); TOTAL PROTEIN 7.7 g/dL (6.4-8.2)
--- NOTE | 2020-07-12 07:01 | NUR ---
BEDSIDE REPORT RECIEVED, ASSUMED CARE OF PT AT THIS TIME. PT RESTING ON GURNEY AT THIS TIME. VSS, NO NEEDS VERBALIZED AT THIS TIME
[2020-07-12] MEDS ORDERED: OMNIPAQUE 350 MG/ML, 150 ML BOTTLE ONE (07:46)
--- NOTE | 2020-07-12 07:57 | NUR ---
PT BACK FROM CT AT THIS TIME, REQUESTING WATER. PT UPDATED RESULTS ARE PENDING, WILL RE-EVAL. VSS
[2020-07-12] MEDS ORDERED: MORPHINE SULFATE 4 MG/ML, 1ML IVPush PRN (08:30)
--- NOTE | 2020-07-12 09:18 | NUR ---
dr fuller spoke with dr arellano (gi).
--- NOTE | 2020-07-12 09:28 | NUR ---
PT AMBULATED TO BR WITH STEADY GAIT, BACK TO RM AT THIS TIME. VSS
--- NOTE | 2020-07-12 09:55 | NUR ---
REPORT TO THAIS WELCH
[2020-07-12 11:05] VITALS: BP 113/65
== END 2020-07-12 11:07 | disposition home or self-care (01) ==
LOC: ED 06:47
DX: K57.90 Diverticulosis of intestine, part unspecified, without perforation or abscess without bleeding (principal); I71.4 Abdominal aortic aneurysm, without rupture; R10.9 Unspecified abdominal pain; E78.5 Hyperlipidemia, unspecified; I10 Essential (primary) hypertension; E11.9 Type 2 diabetes mellitus without complications; Z87.891 Personal history of nicotine dependence
CPT/HCPCS: 36415; 74177; 80053; 81003; 85025; 99285; Q9967

== ENCOUNTER 2020-07-15 12:41 | Inpatient (IN) | payer OTHER ==
[~2020-07-15] VITALS: Ht 180.3 cm; Wt 144.5 kg
[~2020-07-15 12:41] MED LIST changes: +ENALAPRIL PO
[2020-07-15] MEDS ORDERED: MAALOX/HYOSCYAMINE/LIDOCAINE 45 ML BTL ONE (13:29)
[2020-07-15] MEDS ORDERED: MAALOX/HYOSCYAMINE/LIDOCAINE 45 ML BTL PO ONE (13:30)
--- NOTE | 2020-07-15 13:35 | NUR ---
PT IN RAD AT THIS TIME
[2020-07-15 14:04] LABS: BASOPHILS # (AUTO) 0.03 x10^3/uL (0-0.1); BASOPHILS % (AUTO) 0 % (0-1); EOSINOPHILS % (AUTO) 3 % (1-7); LYMPHOCYTES # (AUTO) 1.25 x10^3/uL (1-3.4); LYMPHOCYTES % (AUTO) 14 % (22-44); MD NO; MEAN CORPUSCULAR HEMOGLOBIN 31.9 pg (27.5-34.5); MEAN CORPUSCULAR HGB CONC 33.1 g/dL (33.2-36.2); MEAN PLATELET VOLUME 7.7 fL (7.4-10.4); MONOCYTES # (AUTO) 0.63 x10^3/uL (0.2-0.8); MONOCYTES % (AUTO) 7 % (2-9); NEUTROPHILS # (AUTO) 6.48 x10^3/uL (1.8-6.8); NEUTROPHILS % (AUTO) 75 % (42-75); PLATELET COUNT 171 x10^3/uL (130-400); RED BLOOD COUNT 4.85 x10^6/uL (4.38-5.82); RED CELL DISTRIBUTION WIDTH 13.2 % (9.4-14.8)
[2020-07-15 14:10] LABS: ALANINE AMINOTRANSFERASE 31 U/L (12-78); ALBUMIN 3.5 g/dL (3.4-5.0); ANION GAP 7 mmol/L (5-15); CALCIUM 9.4 mg/dL (8.5-10.1); CHLORIDE 102 mmol/L (98-107); CREATININE 0.86 mg/dL (0.7-1.3)
[2020-07-15 14:13] LABS: ALKALINE PHOSPHATASE 42 U/L (45-117); BILIRUBIN,TOTAL 0.6 mg/dL (0.2-1.0)
[2020-07-15] MEDS ORDERED: SODIUM CHLORIDE 0.9% 1,000 ML IV ONE ×2 (14:28→14:52)
[2020-07-15] MEDS ORDERED: ONDANSETRON 2MG/ML, 2ML IVPush ONE (14:30)
[2020-07-15] MEDS ORDERED: MORPHINE SULFATE 4 MG/ML, 1ML IVPush PRN (14:30)
[2020-07-15] MEDS ORDERED: SODIUM CHLORIDE FLUSH 10ML SYR IVF ONE (14:30)
--- NOTE | 2020-07-15 14:56 | NUR ---
PT AWARE HE IS TO BE ADMITTED. PT GOING TO THEIR HOUSE TO GET MEDS AND DOSES. HOSPITALIST IS IN ROOM AT THIS TIME.
[2020-07-15] MEDS ORDERED: SODIUM CHLORIDE FLUSH 10ML SYR IVF PRN (15:00)
[2020-07-15] MEDS ORDERED: ONDANSETRON 2MG/ML, 2ML ONE (15:01)
--- NOTE | 2020-07-15 15:29 | NUR ---
REPORT TO ARLENE FOR ROOM 358.
[2020-07-15] MEDS ORDERED: GLIM2TAB7 PO (15:41)
[2020-07-15] MEDS ORDERED: CARV3.1212 PO (15:41)
[2020-07-15] MEDS ORDERED: MULT-717 PO (15:41)
[2020-07-15] MEDS ORDERED: SIMV40TA20 PO (15:41)
[2020-07-15] MEDS ORDERED: ENAL10TA9 PO (15:41)
[2020-07-15 15:53] VITALS: BP 134/75
[2020-07-15 16:04] VITALS: BP 134/75
[2020-07-15] MEDS ORDERED: LORazepam 1MG TABLET PO PRN ×3 (16:30)
[2020-07-15] MEDS ORDERED: LORazepam 0.5MG TABLET PO PRN (16:30)
[2020-07-15] MEDS ORDERED: LORazepam 2 MG/ML, 1ML IV PRN ×4 (16:30)
[2020-07-15] MEDS ORDERED: ENALAPRILAT 1.25 MG/ML, 2ML IVPush PRN (16:30)
[2020-07-15] MEDS ORDERED: morphine SULFATE 10 MG/ML, 1ML IVPush PRN (16:30)
[2020-07-15] MEDS ORDERED: LABETALOL 5MG/ML, 20ML IVPush PRN (16:30)
[2020-07-15] MEDS: LACTATED RINGERS 1,000 ML IV SCH ×2 (17:00→23:39)
[2020-07-15] MEDS: CARVEDILOL 3.125 MG TABLET PO SCH (17:00)
[2020-07-15] MEDS: KETOROLAC 30 MG/1 ML IV SCH ×2 (17:01→22:59)
[2020-07-15] MEDS: ENOXAPARIN 40 MG/0.4 ML SQ SCH (17:02)
[2020-07-15 20:05] VITALS: BP 142/79
[2020-07-15] MEDS: DIPHENHYDRAMINE 25 MG CAPSULE PO PRN (20:26)
[2020-07-15] MEDS: FAMOTIDINE 20 MG/2 ML IVPush SCH (20:26)
[2020-07-15] MEDS: SIMVASTATIN 40 MG TABLET PO SCH (20:26)
[2020-07-15] MEDS ORDERED: metFORMIN XR 500 MG TAB.ER.24H PO SCH (21:00)
[2020-07-16 01:00] VITALS: BP 147/54
[2020-07-16] MEDS: CARVEDILOL 3.125 MG TABLET PO SCH ×2 (05:22→17:52)
[2020-07-16] MEDS: KETOROLAC 30 MG/1 ML IV SCH ×4 (05:22→23:00)
[2020-07-16 05:36] LABS: CALCIUM 8.6 mg/dL (8.5-10.1); CHLORIDE 105 mmol/L (98-107)
[2020-07-16 05:40] LABS: ANION GAP 5 mmol/L (5-15); CREATININE 0.79 mg/dL (0.7-1.3)
[2020-07-16 05:50] LABS: BASOPHILS # (AUTO) 0.02 x10^3/uL (0-0.1); BASOPHILS % (AUTO) 0 % (0-1); EOSINOPHILS # (AUTO) 0.26 x10^3/uL (0-0.4); EOSINOPHILS % (AUTO) 5 % (1-7); LYMPHOCYTES # (AUTO) 1.22 x10^3/uL (1-3.4); LYMPHOCYTES % (AUTO) 23 % (22-44); MD NO; MEAN CORPUSCULAR HGB CONC 33.3 g/dL (33.2-36.2); MEAN PLATELET VOLUME 7.9 fL (7.4-10.4); MONOCYTES # (AUTO) 0.51 x10^3/uL (0.2-0.8); MONOCYTES % (AUTO) 9 % (2-9); NEUTROPHILS # (AUTO) 3.35 x10^3/uL (1.8-6.8); NEUTROPHILS % (AUTO) 63 % (42-75); PLATELET COUNT 144 x10^3/uL (130-400); RED BLOOD COUNT 4.18 x10^6/uL (4.38-5.82); RED CELL DISTRIBUTION WIDTH 13.6 % (9.4-14.8)
[2020-07-16] MEDS: LACTATED RINGERS 1,000 ML IV SCH ×3 (06:29→18:03)
[2020-07-16 07:24] VITALS: BP 118/57
[2020-07-16] MEDS: CHOLECALCIFEROL 5,000u TAB PO SCH (08:49)
[2020-07-16] MEDS: ENALAPRIL 10 MG TABLET PO SCH (08:50)
[2020-07-16] MEDS: FAMOTIDINE 20 MG/2 ML IVPush SCH ×2 (08:50→20:58)
[2020-07-16 13:42] VITALS: BP 118/70
[2020-07-16] MEDS: ENOXAPARIN 40 MG/0.4 ML SQ SCH (17:52)
[2020-07-16 19:01] VITALS: BP 116/73
[2020-07-16] MEDS: DIPHENHYDRAMINE 25 MG CAPSULE PO PRN (20:59)
[2020-07-16] MEDS: SIMVASTATIN 40 MG TABLET PO SCH (20:59)
[2020-07-17] MEDS: LACTATED RINGERS 1,000 ML IV SCH ×2 (00:10→05:31)
[2020-07-17 00:44] VITALS: BP 107/62
[2020-07-17] MEDS: KETOROLAC 30 MG/1 ML IV SCH (05:00)
[2020-07-17] MEDS: CARVEDILOL 3.125 MG TABLET PO SCH (05:31)
[2020-07-17 06:42] VITALS: BP 152/73
[2020-07-17] MEDS: CHOLECALCIFEROL 5,000u TAB PO SCH (08:22)
[2020-07-17] MEDS: ENALAPRIL 10 MG TABLET PO SCH (08:22)
== END 2020-07-17 09:35 | disposition home or self-care (01) | DRG 439 ==
LOC: ED 13:25 → 3N 14:52 → DCLOUNGE 07-17 09:30
PROVIDERS: ADMIT Family Medicine; ATTEND Family Medicine
DX: K85.20 Alcohol induced acute pancreatitis without necrosis or infection (principal); I50.22 Chronic systolic (congestive) heart failure; E11.9 Type 2 diabetes mellitus without complications; I11.0 Hypertensive heart disease with heart failure; F10.10 Alcohol abuse, uncomplicated; I71.4 Abdominal aortic aneurysm, without rupture; Z66 Do not resuscitate; Z87.891 Personal history of nicotine dependence; Z95.2 Presence of prosthetic heart valve; Z88.5 Allergy status to narcotic agent
CPT/HCPCS: 36415; 74021; J3490; 80048; 80053; 83690; 83735; 85025; 96374; 99285; G0378; J1650; J1885; J2405; J7030; J7120; Q0163

== ENCOUNTER 2020-12-22 11:44 | Inpatient (IN) | payer OTHER ==
[~2020-12-22] VITALS: Ht 182.9 cm; Wt 144.7 kg
[~2020-12-22 11:44] MED LIST changes: +CARV3.1212 PO; +ENAL10TA9 PO; +GLIM2TAB7 PO; +MULT-717 PO; -OXYC5TAB3 PO; +OXYC5TAB98 PO; +SIMV40TA20 PO
--- NOTE | 2020-12-22 12:10 | NUR ---
PT C/O CHEST TIGHTNESS THAT STARTED THIS AM. PT STATES HE HAS BEEN FEELING MORE TIRED MORE THAN NORMAL THIS WEEK. PT DENIES SOB, N/V, COTA, OR CHEST TIGHTNESS AT THIS TIME. PT STATES HIS TIGHTNESS RESOLVED WHEN WALKING TO THE ER.
[2020-12-22] MEDS ORDERED: NITROGLYCERIN OINT 2%, 1GM TP ONE ×2 (12:25→12:30)
[2020-12-22] MEDS ORDERED: ASPIRIN 81 MG TABLET CHEW ONE (12:26)
[2020-12-22] MEDS ORDERED: SODIUM CHLORIDE FLUSH 10ML SYR IVF ONE (12:30)
[2020-12-22] MEDS ORDERED: ASPIRIN 81 MG TABLET CHEW PO ONE (12:30)
[2020-12-22 12:34] LABS: BASOPHILS % (AUTO) 1 % (0-1); EOSINOPHILS % (AUTO) 4 % (1-7); LYMPHOCYTES % (AUTO) 30 % (22-44); MEAN CORPUSCULAR HEMOGLOBIN 32.9 pg (27.5-34.5); MEAN CORPUSCULAR HGB CONC 34.8 g/dL (33.2-36.2); MONOCYTES % (AUTO) 12 % (2-9); NEUTROPHILS % (AUTO) 53 % (42-75); PLATELET COUNT 167 x10^3/uL (130-400); RED BLOOD COUNT 4.54 x10^6/uL (4.38-5.82); RED CELL DISTRIBUTION WIDTH 13.9 % (9.4-14.8)
[2020-12-22 12:45] LABS: ALBUMIN 3.8 g/dL (3.4-5.0); ANION GAP 7 mmol/L (5-15); CALCIUM 8.6 mg/dL (8.5-10.1); CHLORIDE 107 mmol/L (98-107); MD NO
[2020-12-22 12:51] LABS: ALANINE AMINOTRANSFERASE 53 U/L (12-78); ALKALINE PHOSPHATASE 51 U/L (45-117); BILIRUBIN,TOTAL 0.4 mg/dL (0.2-1.0); CREATININE 0.97 mg/dL (0.7-1.3); TOTAL PROTEIN 7.4 g/dL (6.4-8.2); TROPONIN I < 0.015 ng/mL (0.000-0.045)
--- NOTE | 2020-12-22 14:25 | NUR ---
TASK RN: PT RESTING IN [facility] AT THIS TIME;
[2020-12-22] MEDS ORDERED: POLYETHYLENE GLYCOL 17 GM PACKET PO PRN (15:30)
[2020-12-22] MEDS ORDERED: ACETAMINOPHEN 325 MG TABLET PO PRN (15:30)
[2020-12-22] MEDS ORDERED: CYCLOBENZAPRINE 10 MG TABLET PO PRN (15:30)
[2020-12-22] MEDS ORDERED: BISACODYL 10 MG SUPP PR PRN (15:30)
[2020-12-22] MEDS ORDERED: morphine SULFATE 10 MG/ML, 1ML IVPush PRN (15:30)
[2020-12-22] MEDS ORDERED: LIDODERM 5% PATCH TD PRN (15:30)
[2020-12-22] MEDS ORDERED: hydrALAzine 20 MG/ML, 1ML IVPush PRN (15:30)
[2020-12-22] MEDS ORDERED: ONDANSETRON 2MG/ML, 2ML IVPush PRN (15:30)
[2020-12-22] MEDS ORDERED: NITROGLYCERIN 0.4 MG BOTTLE (25 TABS) SL PRN (16:00)
[2020-12-22] MEDS ORDERED: MAALOX/HYOSCYAMINE/LIDOCAINE 45 ML BTL PO ONE (16:00)
[2020-12-22] MEDS ORDERED: NITROGLYCERIN 0.4 MG/SPRAY SL PRN (16:00)
[2020-12-22 16:05] VITALS: BP 119/63
[2020-12-22] MEDS: metFORMIN XR 500 MG TAB.ER.24H PO SCH (18:38)
[2020-12-22] MEDS: ENOXAPARIN 40 MG/0.4 ML SQ SCH (18:38)
[2020-12-22 18:50] LABS: TROPONIN I < 0.015 ng/mL (0.000-0.045)
[2020-12-22 19:14] VITALS: BP 128/70
[2020-12-22] MEDS: GLIMEPIRIDE 1 MG TABLET PO SCH (21:11)
[2020-12-22] MEDS: CARVEDILOL 3.125 MG TABLET PO SCH (21:11)
[2020-12-22] MEDS: MELATONIN 5 MG TABLET PO PRN (21:11)
[2020-12-22] MEDS: SIMVASTATIN 40 MG TABLET PO SCH (21:11)
[2020-12-22] MEDS ORDERED: GLUCAGON 1 MG IM PRN (21:30)
[2020-12-22] MEDS ORDERED: DEXTROSE 4 GM TAB.CHEW PO PRN (21:30)
[2020-12-22] MEDS ORDERED: DEXTROSE 50%, 50ML SYRINGE IVPush PRN (21:30)
[2020-12-22] MEDS: SODIUM CHLORIDE FLUSH 10ML SYR IVF SCH (21:41)
[2020-12-22] MEDS: INSULIN LISPRO 100 UNITS/ML, PEN SQ-INSULIN SCH (21:48)
[2020-12-23 01:18] LABS: TROPONIN I < 0.015 ng/mL (0.000-0.045)
[2020-12-23 01:24] VITALS: BP 132/68
[2020-12-23 04:52] LABS: BASOPHILS % (AUTO) 1 % (0-1); EOSINOPHILS % (AUTO) 5 % (1-7); LYMPHOCYTES % (AUTO) 26 % (22-44); MEAN CORPUSCULAR HEMOGLOBIN 32.3 pg (27.5-34.5); MEAN CORPUSCULAR HGB CONC 34.2 g/dL (33.2-36.2); MEAN PLATELET VOLUME 7.8 fL (7.4-10.4); MONOCYTES % (AUTO) 9 % (2-9); NEUTROPHILS % (AUTO) 60 % (42-75); PLATELET COUNT 133 x10^3/uL (130-400); RED BLOOD COUNT 4.31 x10^6/uL (4.38-5.82); RED CELL DISTRIBUTION WIDTH 13.9 % (9.4-14.8)
[2020-12-23 04:58] LABS: MD NO
[2020-12-23 05:00] LABS: CHLORIDE 105 mmol/L (98-107)
[2020-12-23 05:18] LABS: ANION GAP 6 mmol/L (5-15); CALCIUM 9.1 mg/dL (8.5-10.1); CHOL/HDL RATIO 4.2; CHOLESTEROL, TOTAL 138 mg/dL (140-239); CREATININE 0.85 mg/dL (0.7-1.3); HDL CHOL % 24 % (26-37); HDL CHOLESTEROL (DIRECT) 33 mg/dL (40-60); LDL CHOLESTEROL,CALCULATED 50 mg/dL (54-169); LDL/HDL RATIO 1.5 (0.5-3.0); TRIGLYCERIDES 273 mg/dL (50-200); VLDL CHOLESTEROL 55 mg/dL (0-25)
[2020-12-23] MEDS: ASPIRIN 325 MG TABLET EC PO SCH (05:46)
[2020-12-23] MEDS: INSULIN LISPRO 100 UNITS/ML, PEN SQ-INSULIN SCH ×4 (07:00→20:12)
[2020-12-23 08:00] VITALS: BP 134/78
[2020-12-23] MEDS: metFORMIN XR 500 MG TAB.ER.24H PO SCH ×2 (08:00→17:00)
[2020-12-23] MEDS ORDERED: REGADENOSON 0.4 MG/5 ML SYRINGE ONE (08:07)
[2020-12-23] MEDS: GLIMEPIRIDE 1 MG TABLET PO SCH ×2 (08:11→18:50)
[2020-12-23] MEDS: CHOLECALCIFEROL 5,000u TAB PO SCH (08:12)
[2020-12-23] MEDS: MULTIVITAMINS/MINERALS TABLET PO SCH (08:12)
[2020-12-23] MEDS: SENNA/DOCUSATE TABLET PO SCH (08:12)
[2020-12-23] MEDS: CARVEDILOL 3.125 MG TABLET PO SCH ×2 (08:12→20:13)
[2020-12-23] MEDS: SODIUM CHLORIDE FLUSH 10ML SYR IVF SCH ×2 (11:43→20:11)
[2020-12-23 11:46] VITALS: BP 136/90
[2020-12-23] MEDS: ENALAPRIL 10 MG TABLET PO SCH (12:01)
[2020-12-23 14:48] VITALS: BP 105/69
[2020-12-23] MEDS: ENOXAPARIN 40 MG/0.4 ML SQ SCH (15:30)
[2020-12-23 18:50] VITALS: BP 112/70
[2020-12-23] MEDS: MELATONIN 5 MG TABLET PO PRN (20:13)
[2020-12-23] MEDS: SIMVASTATIN 40 MG TABLET PO SCH (20:13)
[2020-12-24 01:14] VITALS: BP 136/72
[2020-12-24] MEDS: ASPIRIN 325 MG TABLET EC PO SCH (05:50)
[2020-12-24 06:58] VITALS: BP 126/78
[2020-12-24] MEDS: INSULIN LISPRO 100 UNITS/ML, PEN SQ-INSULIN SCH ×2 (07:00→11:27)
[2020-12-24] MEDS: MULTIVITAMINS/MINERALS TABLET PO SCH (08:27)
[2020-12-24] MEDS: GLIMEPIRIDE 1 MG TABLET PO SCH (08:27)
[2020-12-24] MEDS: metFORMIN XR 500 MG TAB.ER.24H PO SCH (08:27)
[2020-12-24] MEDS: CHOLECALCIFEROL 5,000u TAB PO SCH (08:28)
[2020-12-24] MEDS: SENNA/DOCUSATE TABLET PO SCH (08:28)
[2020-12-24] MEDS: ENALAPRIL 10 MG TABLET PO SCH (08:28)
[2020-12-24] MEDS: CARVEDILOL 3.125 MG TABLET PO SCH (08:28)
[2020-12-24] MEDS: SODIUM CHLORIDE FLUSH 10ML SYR IVF SCH (08:29)
== END 2020-12-24 13:40 | disposition home or self-care (01) | DRG 313 ==
LOC: ED 12:12 → SUATTDRO 14:01 → EDIP 15:22 → INTOOBSV 15:22 → OBSVTOIN 15:22 → 5SO 16:06 → DCLOUNGE 12-24 13:30
PROVIDERS: ADMIT Internal Medicine; ATTEND Family Medicine
DX: R07.9 Chest pain, unspecified (principal); J96.01 Acute respiratory failure with hypoxia; I20.0 Unstable angina; I47.2 Ventricular tachycardia; Z68.41 Body mass index [BMI] 40.0-44.9, adult; E11.9 Type 2 diabetes mellitus without complications; E66.9 Obesity, unspecified; E78.5 Hyperlipidemia, unspecified; F10.10 Alcohol abuse, uncomplicated; I11.0 Hypertensive heart disease with heart failure; I35.0 Nonrheumatic aortic (valve) stenosis; I50.9 Heart failure, unspecified; K21.9 Gastro-esophageal reflux disease without esophagitis; Z79.84 Long term (current) use of oral hypoglycemic drugs; Z95.2 Presence of prosthetic heart valve; Z79.899 Other long term (current) drug therapy; Z79.891 Long term (current) use of opiate analgesic; Z79.01 Long term (current) use of anticoagulants; Z95.4 Presence of other heart-valve replacement; Z88.5 Allergy status to narcotic agent; Z87.891 Personal history of nicotine dependence
CPT/HCPCS: 36415; 71045; 78452; 80048; 80053; 80061; 82962; 83036; 83735; 83880; 84100; 84443; 84484; 85025; 85379; 93005; 93017; 99285; G0378; J1650; J2785; A9502; J1815

== ENCOUNTER → 2021-01-12 | Outpatient (CLI) | payer OTHER ==
[2021-01-12 07:24] LABS: BASOPHILS % (AUTO) 1 % (0-1); EOSINOPHILS % (AUTO) 5 % (1-7); LYMPHOCYTES % (AUTO) 29 % (22-44); MEAN CORPUSCULAR HGB CONC 33.8 g/dL (33.2-36.2); MEAN PLATELET VOLUME 7.9 fL (7.4-10.4); MONOCYTES % (AUTO) 9 % (2-9); NEUTROPHILS % (AUTO) 56 % (42-75); PLATELET COUNT 169 x10^3/uL (130-400); RED BLOOD COUNT 4.84 x10^6/uL (4.38-5.82); RED CELL DISTRIBUTION WIDTH 13.6 % (9.4-14.8)
[2021-01-12 07:25] LABS: MD NO
[2021-01-12 07:29] LABS: ALANINE AMINOTRANSFERASE 52 U/L (12-78); ALBUMIN 4.3 g/dL (3.4-5.0); ANION GAP 5 mmol/L (5-15); CALCIUM 9.6 mg/dL (8.5-10.1); CHLORIDE 105 mmol/L (98-107)
[2021-01-12 07:31] LABS: ALKALINE PHOSPHATASE 43 U/L (45-117); BILIRUBIN,TOTAL 0.7 mg/dL (0.2-1.0); CHOL/HDL RATIO 3.5; CHOLESTEROL, TOTAL 124 mg/dL (140-239); HDL CHOL % 28 % (26-37); HDL CHOLESTEROL (DIRECT) 35 mg/dL (40-60); LDL CHOLESTEROL,CALCULATED 47 mg/dL (54-169); LDL/HDL RATIO 1.3 (0.5-3.0); TOTAL PROTEIN 8.2 g/dL (6.4-8.2); TRIGLYCERIDES 209 mg/dL (50-200); VLDL CHOLESTEROL 42 mg/dL (0-25)
== END | disposition home or self-care (01) ==
LOC: LAB 07:01
PROVIDERS: ATTEND Internal Medicine
DX: E11.69 Type 2 diabetes mellitus with other specified complication (principal); E78.2 Mixed hyperlipidemia; I11.9 Hypertensive heart disease without heart failure; K85.20 Alcohol induced acute pancreatitis without necrosis or infection
CPT/HCPCS: 36415; 80053; 80061; 82043; 82570; 83036; 85025

== ENCOUNTER → 2021-04-09 | Outpatient (CLI) | payer OTHER | END | disposition home or self-care (01) | LOC: CFH 08:55 | PROVIDERS: ATTEND Internal Medicine | DX: R91.1 Solitary pulmonary nodule (principal); M47.814 Spondylosis without myelopathy or radiculopathy, thoracic region; N62 Hypertrophy of breast; J84.10 Pulmonary fibrosis, unspecified; Z95.2 Presence of prosthetic heart valve | CPT/HCPCS: 71250 ==

== ENCOUNTER → 2021-06-04 | Outpatient (CLI) | payer OTHER | END | disposition home or self-care (01) | LOC: CVU 08:35 | PROVIDERS: ATTEND Internal Medicine Cardiovascular Disease | DX: I34.0 Nonrheumatic mitral (valve) insufficiency (principal); I42.9 Cardiomyopathy, unspecified; I11.9 Hypertensive heart disease without heart failure; E78.5 Hyperlipidemia, unspecified; E11.9 Type 2 diabetes mellitus without complications; Z87.891 Personal history of nicotine dependence | CPT/HCPCS: 93306; 93356 ==

== ENCOUNTER → 2021-07-13 | Outpatient (CLI) | payer OTHER ==
[2021-07-13 08:57] LABS: ALANINE AMINOTRANSFERASE 37 U/L (12-78); ALBUMIN 4.4 g/dL (3.4-5.0); ANION GAP 6 mmol/L (5-15); CALCIUM 9.5 mg/dL (8.5-10.1); CHLORIDE 102 mmol/L (98-107); CREATININE 0.91 mg/dL (0.7-1.3)
[2021-07-13 09:01] LABS: ALKALINE PHOSPHATASE 39 U/L (45-117); BILIRUBIN,TOTAL 0.8 mg/dL (0.2-1.0); CHOL/HDL RATIO 3.2; CHOLESTEROL, TOTAL 144 mg/dL (140-239); HDL CHOL % 31 % (26-37); HDL CHOLESTEROL (DIRECT) 45 mg/dL (40-60); LDL CHOLESTEROL,CALCULATED 63 mg/dL (54-169); LDL/HDL RATIO 1.4 (0.5-3.0); TOTAL PROTEIN 8.2 g/dL (6.4-8.2); TRIGLYCERIDES 181 mg/dL (50-200); VLDL CHOLESTEROL 36 mg/dL (0-25)
== END | disposition home or self-care (01) ==
LOC: LAB 08:31
PROVIDERS: ATTEND Internal Medicine
DX: E11.9 Type 2 diabetes mellitus without complications (principal); E11.65 Type 2 diabetes mellitus with hyperglycemia; E11.69 Type 2 diabetes mellitus with other specified complication; B97.89 Other viral agents as the cause of diseases classified elsewhere; E55.9 Vitamin D deficiency, unspecified; E66.01 Morbid (severe) obesity due to excess calories; E66.9 Obesity, unspecified; E78.2 Mixed hyperlipidemia; E78.5 Hyperlipidemia, unspecified
CPT/HCPCS: 36415; 80053; 80061